=== PATIENT | male | born 1940 | race Caucasian/White ===

== ENCOUNTER → 2023-09-07 14:35 | Outpatient (REF) | payer OTHER, SELFPAY | LOC: RAD 14:35 | PROVIDERS: ATTENDING PHYSICIAN Family Medicine | DX: M54.50 Low back pain, unspecified (principal); M25.551 Pain in right hip | CPT/HCPCS: 72110; 73522 ==

== ENCOUNTER → 2023-09-26 10:19 | Outpatient (REF) | payer OTHER, SELFPAY | LOC: PAVMRI 10:19 | PROVIDERS: ATTENDING PHYSICIAN Orthopaedic Surgery; FAMILY PHYSICIAN Family Medicine | DX: M54.50 Low back pain, unspecified (principal) | CPT/HCPCS: 72148 ==

== ENCOUNTER → 2024-04-04 10:39 | Outpatient (REF) | payer OTHER, SELFPAY | LOC: HWRAD 10:39 | PROVIDERS: ATTENDING PHYSICIAN Family Medicine | DX: D72.829 Elevated white blood cell count, unspecified (principal); R43.2 Parageusia | CPT/HCPCS: 70450 ==